=== PATIENT | female | born 1990 | race Caucasian/White ===

== ENCOUNTER 2016-12-21 22:15 | Emergency (ER) | payer SELFPAY ==
--- NOTE | ~2016-12-21 | ER ---
PAT[facility] AGE: 26 Y [address] ROOM: [place] [address] LOCATION: [facility] ADMIT DATE: 12/21/2016 ER/Outpatient Report DISCHARGE DATE: 12/21/2016 FAMILY PHYSICIAN: Torito Snow MD ATTENDING PHYSICIAN: Brian Castaneda TIME OF ARRIVAL: 2227 hours. TIME OF EXAM: 2227 hours. CHIEF COMPLAINT: Toothache. HISTORY OF PRESENT ILLNESS: The patient states for the past 3 days she has had right lower toothache in posterior tooth. She states that she did call and talk with her dentist Dr. Gonzalez in [place], [place]. Unfortunately, she cannot be seen until next Wednesday the 28 of December. She states the pain has become much more severe tonight. ALLERGIES: SHE HAS NO KNOWN ALLERGIES. CURRENT MEDICATIONS: Current medications are on her chart and reviewed by me. PAST MEDICAL HISTORY: Mitral valve leak and kidney stones. PAST SURGERIES: Lithotripsy. SOCIAL HISTORY: She smokes approximately 5 cigarettes per day. Denies use of drugs and alcohol. REVIEW OF SYSTEMS: All negative other than those mentioned in the HPI. PHYSICAL EXAMINATION: VITAL SIGNS: She weighed 66.5 kg. Blood pressure is 138/65, pulse of 82, respirations 14, and O2 sat was 98% on room air. GENERAL: She is awake, alert, and oriented x4. PAT[facility] AGE: 26 Y [address] ROOM: [place] [address] LOCATION: [facility] ADMIT DATE: 12/21/2016 ER/Outpatient Report DISCHARGE DATE: 12/21/2016 FAMILY PHYSICIAN: Torito Snow MD ATTENDING PHYSICIAN: Brian Castaneda SKIN: [place], warm, and dry. RESPIRATIONS: Even and nonlabored. HEENT: The patient has decay noted on the right posterior tooth. She is missing some teeth in front of it. She does have a broken tooth in the right upper area. Gums do look reddened and slightly inflamed. IMPRESSION: Dental decay, infected tooth. PLAN: Home, rest, and rinse her mouth frequently. Soft foods. Prescription was written for Augmentin and [place]. She is to see the dentist as scheduled and call sooner if symptoms continue to worsen. She verbalized understanding. PIERRE KITCHEN APRN FOR MD TRACI FERNANDEZ/chelle /[id number] d: 12/22/16 0501 t: 12/24/16 1230, OUTPATIENT REPORT
[~2016-12-21 22:15] MED LIST: ACETAMINOPHEN325 MG PO; ACETAMINOPHEN500 M1 PO; ADVIL200 MG PO; AMOXIL (BID DO875 MG PO; DEPO PROVER150 MG/ML IM; DERMOPLAST SPRA56 GM TOP; FLINTSTONES WIT18 MG PO; KEFLEX250 MG PO; KEFLEX500 MG PO; PERCOCET 5-3251 EACH PO; PRENATAL 1+1)(P1 TAB PO; TUCKS1 EACH TOP; ZOFRAN4 M1 PO
== END 2016-12-21 22:38 | disposition disaster alternative care site (69) ==
LOC: GMED 22:15
DX: K04.7 Periapical abscess without sinus (principal); K02.9 Dental caries, unspecified; F17.210 Nicotine dependence, cigarettes, uncomplicated; Z87.442 Personal history of urinary calculi; Z98.890 Other specified postprocedural states

== ENCOUNTER 2017-01-06 12:43 | Emergency (ER) | payer SELFPAY ==
--- NOTE | ~2017-01-06 | ER ---
PATIENT'S NAME: FENG [facility] AGE: 26 Y [address] ROOM: [place] [address] LOCATION: ED ADMIT DATE: 01/06/2017 ER/Outpatient Report DISCHARGE DATE: 01/06/2017 FAMILY PHYSICIAN: Torito Snow MD ATTENDING PHYSICIAN: Herman Whitaker Time of Arrival: 1243 hours. Time of Evaluation: 1300 hours. CHIEF COMPLAINT: Right flank pain. HISTORY OF PRESENT ILLNESS: This is a 26-year-old female, who presents to the ER, who states she is having some right flank pain. This started around 5 o'clock this morning. The patient states that she has pressure with urination as well. She states she has had no fever, no troubles with bowel movements but does have nausea. She describes her pain as sharp and stabbing in nature. She states that she has had pain similar to this in the past. She does have a history of kidney stones. She did take Tylenol No. 3 at 5:30 this morning. ALLERGIES: NO KNOWN ALLERGIES. MEDICATIONS: None. PAST MEDICAL HISTORY: Kidney stones, mitral valve leak. She has had lithotripsy done. SOCIAL HISTORY: She smokes 3 cigarettes a day, has smoked for the last 8 years. Denies any drug or alcohol use. REVIEW OF SYSTEMS: A 10-point systems was completed and was negative with the exception of those discussed in the HPI. PHYSICAL EXAMINATION: VITAL SIGNS: Weight 65.2 kg taken, blood pressure is 130/77, pulse 82, respirations 20, temperature 98.3 degrees tympanically, saturations 97% on room air. [place] Coma score is 15. GENERAL: An alert, calm, well-developed female, in no acute distress. HEENT: Head: Normocephalic. Eyes: Pupils are equal and reactive to light. She does display moist mucous membranes. PATIENT'S NAME: FENG [facility] AGE: 26 Y [address] ROOM: [place] [address] LOCATION: [facility] ADMIT DATE: 01/06/2017 ER/Outpatient Report DISCHARGE DATE: 01/06/2017 FAMILY PHYSICIAN: Torito Snow MD ATTENDING PHYSICIAN: Herman Whitaker LUNGS: Clear to auscultation bilaterally. No wheezes or crackles. Normal respiratory effort. HEART: Regular rate and rhythm. No lifts, thrills, or murmurs. ABDOMEN: Soft. She does have generalized tenderness in all 4 quadrants with palpation. She does have some right-sided CVA tenderness. She has no guarding. No rebound tenderness. She has good bowel sounds throughout. EXTREMITIES: No clubbing, cyanosis, or edema. She has full range of motion of all limbs. NEUROLOGIC: Cranial nerves 2 through 12 grossly intact. Gait is steady without assistance. LABORATORY DATA AND X-RAYS: CBC: White count is 8.2, hemoglobin 14.4, platelets 195. CMS: Potassium 3.3, calcium 8.8, otherwise unremarkable. Urinalysis, UA micro: White blood cell 20-50, red blood cells 10-20, epithelial full field, bacteria a few. Urine hCG is negative. We did review all of her previous CAT scan. She has had several in the past. We did do an ultrasound today due to the fact the amount of CT scan that she has had. Her ultrasound showed no ultrasound findings of renal collecting system obstruction. IMPRESSION: 1. Right flank pain. 2. Urinary tract infection. ASSESSMENT AND PLAN: We did monitor the patient here. We did start an IV and did give her some IV fluids along with 4 mg of Zofran, 2 mg of morphine, and 30 mg of Toradol. She rested comfortably her entire stay. Repeat examinations of her abdomen remained nonsurgical when she was text messaging and playing on her phone during those repeat examinations. We will dismiss her to home with a prescription for Bactrim to use as directed. She needs to continue to push fluids, monitor her symptoms. I would like her to follow up with her primary care physician and urologist for followup care. The patient understands and agrees with care. JAIMEE OROPEZA PA-C FOR HERMAN WHITAKER, DO YURY/racheall /[id number] d: t: 01/14/17 1222, OUTPATIENT REPORT
[2017-01-06 13:20] LABS: BASOPHIL % 0.4 %; EOSINOPHIL # 0.1 K/uL (0.0-0.5); EOSINOPHIL % 0.9 %; HEMATOCRIT 41.7 % (33.0-46.0); HEMOGLOBIN 14.4 g/dL (11.0-15.0); IMMATURE GRANULOCYTE % 0.2 %; LYMPHOCYTE # 2.1 K/uL (0.8-4.0); LYMPHOCYTE % 25.6 %; MCH 30.6 pg (27.0-34.0); MCHC 34.5 gm/dL (32.0-36.5); MCV 88.5 fl (83.0-98.0); MONOCYTE # 0.6 K/uL (0.0-1.0); MONOCYTE % 7.7 %; MPV 10.3 fl (9.4-12.4); NEUTROPHIL # (ANC) 5.3 K/uL (1.8-7.8); NEUTROPHIL % 65.2 %; NRBC % 0 /100WBC (0-0.00); PLATELET COUNT 195 K/uL (150-450); RBC 4.71 M/uL (3.50-5.00); RDW-CV 12.6 % (11.9-14.6); WBC 8.2 K/uL (4.0-11.0)
[2017-01-06 13:23] LABS: BILIRUBIN URINE NEGATIVE (NEGATIVE); BLOOD URINE 10 /UL (NEGATIVE); COLOR URINE YELLOW (YELLOW); GLUCOSE URINE NEGATIVE (NEGATIVE); KETONE URINE NEGATIVE (NEGATIVE); LEUKOCYTES URINE 25 /UL (NEGATIVE); NITRITE URINE NEGATIVE (NEGATIVE); PROTEIN URINE 15 mg/dL (NEGATIVE); SPEC GRAVITY URINE 1.025 (1.003-1.035); TURBIDITY URINE 3+ (CLEAR); UROBILINOGEN URINE 1 mg/dL (NORMAL)
[2017-01-06 13:36] LABS: ALBUMIN 3.8 gm/dL (3.5-5.0); ALK PHOS 126 IU/L (33-138); ALT 18 IU/L (12-78); ANION GAP 12.3 (10.0-19.0); AST 11 IU/L (10-40); BLOOD UREA NITROGEN 6 mg/dL (6-24); CALCIUM 8.2 mg/dL (8.5-10.5); CHLORIDE 107 mMol/L (96-110); CO2 25 mMol/L (22-32); CREATININE 0.6 mg/dL (0.5-1.1); ESTIMATED GFR (MDRD EQUATION) > 60; POTASSIUM 3.3 mMol/L (3.7-5.1); SODIUM 141 mMol/L (135-145); TOTAL BILIRUBIN 0.3 mg/dL (0.0-1.5)
[2017-01-06 13:48] LABS: BACTERIA URINE FEW (NEGATIVE); EPITHELIAL URINE FULL FIELD #/HPF (NEGATIVE); MUCUS URINE 1+ (NEGATIVE); WBC URINE 20-50 #/HPF (NEGATIVE)
== END 2017-01-06 15:15 | disposition disaster alternative care site (69) ==
LOC: GMED 12:43
PROVIDERS: Physician Assistant Medical
DX: N39.0 Urinary tract infection, site not specified (principal); F17.210 Nicotine dependence, cigarettes, uncomplicated
CPT/HCPCS: J1885; J2270; J2405; J7030

== ENCOUNTER 2017-04-26 15:50 | Emergency (ER) | payer SELFPAY ==
--- NOTE | ~2017-04-26 | ER ---
[facility] A[facility] 26 Y [address] ROOM: [place] [address] LOCATION: [facility] ADMIT DATE: 04/26/2017 ER/Outpatient Report DISCHARGE DATE: 04/26/2017 FAMILY PHYSICIAN: Torito Snow MD ATTENDING PHYSICIAN: Rose Ledezma Time of Arrival: 1552 hours. Time of Evaluation: 1553 hours. CHIEF COMPLAINT: Left flank pain. HISTORY OF PRESENT ILLNESS: The patient states that she has been having pain for the past hour. It starts in the left flank area. Radiates around to the front of her stomach. She has been nauseated, no vomiting. She has a history of kidney stones, feels as though this is similar to the pain that she had when she had the stone. Says she just cannot get comfortable. She denies running any fever. She has not had any chills. Denies any pain or discomfort with urination. She had a normal bowel movement this morning. ALLERGIES: NO KNOWN ALLERGIES. MEDICATIONS: No current medications. PAST MEDICAL HISTORY: Kidney stones, mitral valve leak. PAST SURGICAL HISTORY: Surgery to retrieve a kidney stone and a cone biopsy of the cervix. SOCIAL HISTORY: Smokes half pack per day. Denies use of drugs. Does drink alcohol on a social basis. REVIEW OF SYSTEMS: All negative other than those mentioned in the HPI. PHYSICAL EXAMINATION: VITAL SIGNS: She weights 63 kg, blood pressure is 122/70, pulse of 84, respirations 20, temperature of 99 tympanic, O2 saturation is 95% on room air. GENERAL: She is awake, alert, and oriented x4. SKIN: [place], warm, and dry. PATIENT'S NAME: FENG [facility] AGE: 26 Y [address] ROOM: [place] [address] LOCATION: [facility] ADMIT DATE: 04/26/2017 ER/Outpatient Report DISCHARGE DATE: 04/26/2017 FAMILY PHYSICIAN: Torito Snow MD ATTENDING PHYSICIAN: Rose Ledezma RESPIRATIONS: Even and nonlabored. Lung sounds are clear throughout. HEART: Regular rate and rhythm. ABDOMEN: Soft, nondistended. Bowel sounds are present. She is tender in the lower left abdominal area. Does have some flank tenderness. EMERGENCY DEPARTMENT COURSE: Clean-catch UA was obtained. Saline lock was initiated. Fluids of normal saline were started at a wide-open rate. She was given Zofran 4 mg IV and Toradol 30 mg IV. Lab work was done. The patient continued to have pain. She was given morphine 2 mg IV. LABORATORY DATA AND X-RAYS: CBC is within normal limits. Chem panel is within normal limits. Her urine was negative for . Does have 25 leukocytes. Micro shows 0-2 white cells and moderate bacteria. CT scan of the abdomen was completed. Radiologist reports no signs of a stone at this time. No other abnormality of the CT scan. IMPRESSION: Urinary tract infection. PLAN: Home, rest, fluids. Tylenol or ibuprofen for discomfort. Prescription was written for Bactrim DS. She is to follow up with her primary provider in the next 2 to 3 days. She verbalized understanding. PIERRE KITCHEN APRN FOR MD TR[facility]/chelle /[id number] d: 04/27/17 0024 t: 04/27/17 1230, OUTPATIENT REPORT
[2017-04-26 16:16] LABS: BASOPHIL % 0.3 %; EOSINOPHIL # 0.1 K/uL (0.0-0.5); HEMATOCRIT 41.3 % (33.0-46.0); HEMOGLOBIN 14.9 g/dL (11.0-15.0); IMMATURE GRANULOCYTE % 0.2 %; LYMPHOCYTE # 2.4 K/uL (0.8-4.0); MCHC 36.1 gm/dL (32.0-36.5); MCV 88.6 fl (83.0-98.0); MONOCYTE # 0.6 K/uL (0.0-1.0); MONOCYTE % 6.1 %; MPV 10.8 fl (9.4-12.4); NEUTROPHIL # (ANC) 6.1 K/uL (1.8-7.8); NEUTROPHIL % 66.4 %; NRBC % 0 /100WBC (0-0.00); PLATELET COUNT 217 K/uL (150-450); RBC 4.66 M/uL (3.50-5.00); RDW-CV 12.2 % (11.9-14.6); WBC 9.1 K/uL (4.0-11.0)
[2017-04-26 16:17] LABS: BILIRUBIN URINE NEGATIVE (NEGATIVE); BLOOD URINE NEGATIVE /UL (NEGATIVE); COLOR URINE YELLOW (YELLOW); GLUCOSE URINE NEGATIVE (NEGATIVE); KETONE URINE NEGATIVE (NEGATIVE); LEUKOCYTES URINE 25 /UL (NEGATIVE); NITRITE URINE NEGATIVE (NEGATIVE); PH URINE 6.5 (4.0-8.0); PROTEIN URINE NEGATIVE (NEGATIVE); SPEC GRAVITY URINE 1.015 (1.003-1.035); TURBIDITY URINE CLEAR (CLEAR); UROBILINOGEN URINE NORMAL (NORMAL)
[2017-04-26 16:30] LABS: ALBUMIN 3.9 gm/dL (3.5-5.0); ALK PHOS 118 IU/L (33-138); ALT 14 IU/L (12-78); ANION GAP 10.6 (10.0-19.0); AST 9 IU/L (10-40); BLOOD UREA NITROGEN 9 mg/dL (6-24); CALCIUM 8.6 mg/dL (8.5-10.5); CHLORIDE 108 mMol/L (96-110); CO2 24 mMol/L (22-32); CREATININE 0.6 mg/dL (0.5-1.1); ESTIMATED GFR (MDRD EQUATION) > 60; POTASSIUM 3.6 mMol/L (3.7-5.1); SODIUM 139 mMol/L (135-145); TOTAL PROTEIN 7.2 g/dL (6.0-8.4)
[2017-04-26 16:31] LABS: BACTERIA URINE MODERATE (NEGATIVE)
[2017-04-26 16:33] LABS: EPITHELIAL URINE 20-50 #/HPF (NEGATIVE); RBC URINE 0-2 #/HPF (NEGATIVE)
[2017-04-26 16:34] LABS: WBC URINE 0-2 #/HPF (NEGATIVE)
[2017-04-26 16:42] LABS: TOTAL BILIRUBIN 0.4 mg/dL (0.0-1.5)
== END 2017-04-26 17:28 | disposition disaster alternative care site (69) ==
LOC: GMED 15:50
PROVIDERS: Nurse Practitioner Family
DX: N39.0 Urinary tract infection, site not specified (principal); F17.210 Nicotine dependence, cigarettes, uncomplicated; Z87.442 Personal history of urinary calculi; Z98.890 Other specified postprocedural states